=== PATIENT | female | born 1970 | race Caucasian/White ===

== ENCOUNTER 2016-09-24 13:47 | Emergency (ER) | payer MEDICARE, OTHER ==
--- NOTE | ~2016-09-24 | US85 ---
[facility] A Service of [facility] & [facility] RADIOLOGY TEXT RESULTS PATIENT: DENIS NG LOCATION: [place] : 66 UNIT #: [id number] AGE: [address]: Power Lucas MD SEX: F ORDER DR: [id number] [facility] [address] [place], [place] [address] [id number] E MR#: [id number] Acc #: [id number] NAME: DENIS NG : 1970 SEX: F STUDY DATE/TIME: 09/24/2016 14:43 UNIT: [place] ROOM: STUDY DESCRIPTION: [facility] [employer] Attending Physician: Power Lucas M.D. Ordering Physician: Ed Doctor [id number] [facility] Primary Care Physician: Yael Catherine M.D. MEDICAL IMAGING REPORT This report is preliminary unless electronic signature is present EXAM Left leg vein Doppler, 09/24/16 HISTORY Left leg pain since last Thursday. TECHNIQUE Venous ultrasound examination of the left lower extremity was performed using grayscale, spectral Doppler and color flow Doppler imaging. FINDINGS The examination is negative. There is no evidence of left lower extremity deep venous thrombus from the groin to the lower calf. Visualized greater saphenous vein is also patent. IMPRESSION Negative examination. No evidence of left lower extremity deep venous thrombosis. Dictated by... Alex Pat Jr., M.D. THIS IS AN ELECTRONICALLY VERIFIED REPORT Alex Pat Jr., M.D. at 09/25/2016 5:53 AM [place] TD: 09/24/2016 21:11 JOB #: [id number] MEDICAL IMAGING REPORT Page 1 of 1 COPY
[~2016-09-24 13:47] MED LIST: ACETAMINOPHEN500 M3 PO; AUGMENTIN875 MG PO; BACTRIM DS TABL1 TA1 PO; DIOVAN HCT 160-1 TAB PO; DIOVAN160 MG PO; FERRO-TIME325 MG PO; FISH OIL 1,001000 M1 PO; IBUPROFEN600 MG PO; KEFLEX500 MG PO; PROTOPIC100 G1; TEMOVATE 0.05%15 GM TOP
== END 2016-09-24 15:37 | disposition home or self-care (01) ==
LOC: CED 13:47
DX: M79.662 Pain in left lower leg (principal); I10 Essential (primary) hypertension
CPT/HCPCS: 93971; 99284